=== PATIENT | male | born 1965 | race Two or more races ===

== ENCOUNTER 2019-04-08 19:10 | Inpatient (IN) | payer SELFPAY ==
[~2019-04-08] VITALS: Ht 172.7 cm; Wt 93.5 kg
[2019-04-08] MEDS ORDERED: cloNIDine HCL 0.1 MG TAB PO ONE (20:00)
[2019-04-08 20:06] LABS: Basophils # (auto) 0 uL; Basophils % (auto) 0.5 % (0.0-2.0); Eosinophils # (auto) 0 uL; Eosinophils % (auto) 0.2 % (0.0-7.0); Hemoglobin 16.2 g/dL (13.5-17.5); Lymphocytes # (auto) 1.4 uL; Lymphocytes % (auto) 29.3 % (10.0-50.0); Mean Corpuscular Hemoglobin 29.8 pg (28.0-32.0); Mean Corpuscular Hgb Conc. 34.6 g/dL (32.0-36.0); Mean Corpuscular Volume 86.2 fL (80.0-100.0); Monocytes # (auto) 0.6 uL; Monocytes % (auto) 11.6 % (0.0-12.0); Neutrophils # (auto) 2.8 uL; Neutrophils % (auto) 58.4 % (37.0-80.0); Nucleated Red Blood Cells % 0.4 %; Platelet Count (auto) 208 10^3/uL (140-450); Red Blood Cells 5.45 10^6/uL (4.5-5.90); Red Cell Distribution Width 12.4 % (11.8-14.3); White Blood Cell 4.8 10^3/uL (4.4-10.8)
[2019-04-08 20:26] LABS: Albumin 3.2 g/dL (3.4-5.0); BUN/Creatinine Ratio 13.7; Calcium 8.4 mg/dL (8.5-10.1); Potassium 3.4 mmol/L (3.5-5.1)
[2019-04-08 20:31] LABS: Bilirubin, Total 0.5 mg/dL (0.2-1.0); Total Protein 7.3 g/dL (6.4-8.2)
[2019-04-08] MEDS ORDERED: hydrALAZINE HCL 20 MG/ML VL IV ONE ×3 (21:15→22:15)
[2019-04-08] MEDS ORDERED: ASPirin-EC 325mg tab PO ONE (22:00)
[2019-04-08] MEDS ORDERED: KETOROLAC TROMETH 30 MG/ML 1ML VIAL IV ONE (22:15)
[2019-04-09] MEDS ORDERED: MORPHINE SULF INJ 2 MG/ML SYRINGE 1ML IV PRN (05:15)
[2019-04-09] MEDS ORDERED: NITROGLYCERIN 0.4 MG SL TAB SL PRN (05:15)
[2019-04-09] MEDS ORDERED: TEMAZEPAM 15 MG CAP PO PRN (05:15)
[2019-04-09] MEDS ORDERED: ONDANSETRON HCL 4 MG/2 ML VIAL IV PRN (05:15)
[2019-04-09] MEDS ORDERED: IOHEXOL 300 MG/ML 100ML BOTTLE IJ ONE (05:42)
[2019-04-09] MEDS ORDERED: ATORVASTATIN 20 MG TAB PO ONE (06:00)
[2019-04-09 06:18] LABS: Cholesterol 210 mg/dL (< 200)
[2019-04-09 06:21] LABS: HDL Cholesterol 37 mg/dL (40-59); LDL Cholesterol 134 mg/dL (< 100); Triglycerides 202 mg/dL (< 150)
[2019-04-09 08:18] VITALS: BP 144/96
[2019-04-09] MEDS: FAMOTIDINE 20 MG TAB PO SCH ×2 (09:14→22:00)
[2019-04-09] MEDS ORDERED: METF-929 PO (09:23)
[2019-04-09] MEDS ORDERED: AMLO10TA13 PO (09:23)
[2019-04-09] MEDS ORDERED: ASPirin 81 mg TAB PO SCH (10:00)
[2019-04-09] MEDS ORDERED: LISINOPRIL 10 MG TAB PO SCH (10:00)
--- NOTE | 2019-04-09 10:05 | NUR ---
FAXED MEDICAL REQUEST FORMS TO [facility] AND [facility].
[2019-04-09 10:07] VITALS: BP 144/96
--- NOTE | 2019-04-09 12:10 | NUR ---
CALLED [facility] REGARDING FAXED INFORMATION. STATED THEY HAVE NOT RECIEVED IT. FAXED AGAIN.
--- NOTE | 2019-04-09 13:11 | NUR ---
REGARDING MEDICAL RECORDS: CALLED [facility] REGARDING MEDICAL RECORDS REQUEST FORM. STILL NOT RECIEVED. OBTAINED NEW FAX NUMBER WILL TRY AGAIN.
[2019-04-09] MEDS ORDERED: LISINOPRIL 10 MG TAB PO ONE (17:00)
[2019-04-09 17:07] VITALS: BP 157/94
--- NOTE | 2019-04-09 19:00 | NUR ---
Medical records from [facility] received via fax. Placed in hard chart.
--- NOTE | 2019-04-09 19:15 | NUR ---
Opening shift note Assumed care of patient who is A&0 x4, primarily Malaysian speaking, however is able to understand and respond in simple Dutch. Patient is currently on RA with no s/s of SOB or distress. Denies pain at this time. Patient is ambulatory without the use of assistive devices. PIV in left forearm is CDI. Flushed with 10ml NS. POC discussed and patient verbalizes understanding. Bed is in low locked position with side rails up x2. Call light within reach and patient encouraged to call for assistance when needed. Will continue to monitor for changes PRN.
[2019-04-09 21:33] VITALS: BP 153/94
[2019-04-09] MEDS: ATORVASTATIN 20 MG TAB PO SCH (22:00)
[2019-04-09] MEDS: METOPROLOL TARTRATE 50 MG TAB PO SCH (22:00)
[2019-04-09] MEDS ORDERED: ATORVASTATIN 20 MG TAB PO SCH (22:00)
[2019-04-10 05:44] VITALS: BP 144/94
[2019-04-10 07:21] LABS: Basophils # (auto) 0 uL; Basophils % (auto) 0.6 % (0.0-2.0); Eosinophils # (auto) 0.1 uL; Eosinophils % (auto) 1.2 % (0.0-7.0); Hematocrit 45.5 % (41.0-53.0); Hemoglobin 15.8 g/dL (13.5-17.5); Lymphocytes # (auto) 1.6 uL; Lymphocytes % (auto) 34.1 % (10.0-50.0); Mean Corpuscular Hgb Conc. 34.8 g/dL (32.0-36.0); Mean Corpuscular Volume 86.2 fL (80.0-100.0); Monocytes # (auto) 0.6 uL; Monocytes % (auto) 12.8 % (0.0-12.0); Neutrophils # (auto) 2.4 uL; Neutrophils % (auto) 51.3 % (37.0-80.0); Nucleated Red Blood Cells % 0.1 %; Platelet Count (auto) 214 10^3/uL (140-450); Red Blood Cells 5.28 10^6/uL (4.5-5.90); Red Cell Distribution Width 12.5 % (11.8-14.3); White Blood Cell 4.7 10^3/uL (4.4-10.8)
[2019-04-10 07:40] LABS: Calcium 8.7 mg/dL (8.5-10.1); Potassium 3.4 mmol/L (3.5-5.1)
[2019-04-10 08:14] VITALS: BP 151/101
[2019-04-10] MEDS: FAMOTIDINE 20 MG TAB PO SCH ×2 (09:15→21:52)
[2019-04-10] MEDS: ASPirin 81 mg TAB PO SCH (09:16)
[2019-04-10] MEDS: METOPROLOL TARTRATE 50 MG TAB PO SCH ×2 (09:17→21:52)
[2019-04-10] MEDS ORDERED: LISINOPRIL 10 MG TAB PO SCH (10:00)
--- NOTE | 2019-04-10 10:30 | NUR ---
DR. MCGRATH IN TO SEE PT. PT IN AGREEMENT WITH [facility].
[2019-04-10] MEDS ORDERED: POTASSIUM CHL 20 Meq TABLET PO ONE (11:30)
[2019-04-10 13:00] VITALS: BP 164/100
[2019-04-10 16:17] VITALS: BP 152/99
[2019-04-10] MEDS ORDERED: LISINOPRIL 20 MG TAB PO ONE (18:15)
[2019-04-10 20:00] VITALS: BP 177/107
--- NOTE | 2019-04-10 20:10 | NUR ---
Opening Shift Note Assumed care of patient, awake and alert. No S/S of distress/SOB or pain. Instructed on POC and to call for assist PRN, will continue to monitor for changes Q1hr and PRN. Tajik speaking patient.
[2019-04-10 21:52] VITALS: BP 177/107
[2019-04-10] MEDS: ATORVASTATIN 20 MG TAB PO SCH (21:52)
[2019-04-10] MEDS ORDERED: ATORVASTATIN 20 MG TAB PO SCH (22:00)
--- NOTE | 2019-04-10 23:25 | NUR ---
Patient's Blood Pressure. 2200 medication given Metroprolol (50MG. BP 177/107 P-74 Reassessed BP 174/111 P-76 Will page hospitalist to inform patient condition.
--- NOTE | 2019-04-10 23:35 | NUR ---
called about. Ordered Hydralazine 50mg PO TID PRN. Repeated orders to verify. will follow as order
[2019-04-11] MEDS: hydrALAZINE HCL 25 MG TAB PO PRN ×2 (00:02→11:41)
[2019-04-11 04:49] VITALS: BP 171/97
--- NOTE | 2019-04-11 06:15 | NUR ---
Patient 0500 BP 171/97. Will page hospitalist on patient's condition.
--- NOTE | 2019-04-11 06:25 | NUR ---
Dr. Rodrigues called back and order Amlodipine 10mg Po daily. Dr. Rodrigues order to give stat. Repeated orders to verify.
--- NOTE | 2019-04-11 07:00 | NUR ---
Will endorsed to dayshift nurse Amlodipine order. Due to waiting for pharmacy to process.
[2019-04-11] MEDS: amLODIPine BESYLATE 5 MG TAB PO SCH (08:18)
[2019-04-11] MEDS: FAMOTIDINE 20 MG TAB PO SCH ×2 (08:18→22:20)
[2019-04-11] MEDS: ACETAMINOPHEN 325 MG TAB PO PRN (08:19)
[2019-04-11] MEDS: ASPirin 81 mg TAB PO SCH (08:19)
[2019-04-11] MEDS: LISINOPRIL 20 MG TAB PO SCH (08:19)
[2019-04-11] MEDS: METOPROLOL TARTRATE 50 MG TAB PO SCH ×2 (08:19→22:20)
--- NOTE | 2019-04-11 08:25 | NUR ---
PT WITH HIGH B/P MEDICATED PER EMAR, TOLERATED WELL. EFFORTLESS BREATHING ON ROOM AIR. BED IN LOWEST POSITION, CALL LIGHT WITHIN REACH. WILL CONTINUE TO MONITOR.
[2019-04-11 09:20] VITALS: BP 174/114
--- NOTE | 2019-04-11 11:30 | NUR ---
DR. MCGRATH AND DR. CLEMENT MADE AWARE OF PT'S B/P ORDERS RECEIVED FOR CLONIDINE AND RENAL MRI FOR R/O RENAL ARTERY STENOSIS.
[2019-04-11] MEDS: cloNIDine HCL 0.1 MG TAB PO PRN (11:41)
[2019-04-11 13:25] VITALS: BP 101/65
[2019-04-11 14:21] VITALS: BP 173/110
[2019-04-11 16:47] VITALS: BP 120/75
--- NOTE | 2019-04-11 19:55 | NUR ---
Opening Shift Note Assumed care of patient, awake and alert. No S/S of distress/SOB or pain. Instructed on POC and to call for assist PRN, will continue to monitor for changes Q1hr and PRN. Patient aware of stress test tomorrow.
[2019-04-11 22:00] VITALS: BP 160/92
[2019-04-11] MEDS: ATORVASTATIN 20 MG TAB PO SCH (22:20)
[2019-04-12] VITALS (8 sets, daily range): BP systolic 140–166; BP diastolic 87–107
[2019-04-12] MEDS: cloNIDine HCL 0.1 MG TAB PO PRN (05:16)
--- NOTE | 2019-04-12 05:42 | NUR ---
Critical lab. Hgb 5.8. Patient made aware of low hemoglobin. Patient continues to refused blood transfusion. "I want to keep going with the iron". made aware. Addendum: 04/12/19 at 0609 by CHAVEZ DURAN RN RN Wrong patient.
--- NOTE | 2019-04-12 06:09 | NUR ---
IV insertion IV access obtained, via clean sterile technique by inserting 22 gauge catheter at 22 after 1 attempt(s). IV secured properly. No trauma to site. Patient tolerated well.
--- NOTE | 2019-04-12 07:20 | NUR ---
Opening Shift Note Assumed care of patient, awake and alert. No S/S of distress/SOB or pain. Instructed on POC and to call for assist PRN, will continue to monitor for changes Q1hr and PRN.
[2019-04-12] MEDS: METOPROLOL TARTRATE 50 MG TAB PO SCH ×2 (08:40→21:34)
[2019-04-12] MEDS ORDERED: ADENOSINE 77 MG in GIVE UN-DILUTED 0 ML IV STA (08:42)
[2019-04-12] MEDS: FAMOTIDINE 20 MG TAB PO SCH ×2 (09:11→21:33)
[2019-04-12] MEDS: amLODIPine BESYLATE 5 MG TAB PO SCH (09:11)
[2019-04-12] MEDS: ASPirin 81 mg TAB PO SCH (09:12)
[2019-04-12] MEDS: LISINOPRIL 20 MG TAB PO SCH (09:12)
--- NOTE | 2019-04-12 09:13 | NUR ---
Stress Test Patient off floor for stress test
--- NOTE | 2019-04-12 19:10 | NUR ---
Opening Shift Note Received report from immanuel Boyre RN. Assumed care of patient, awake and alert. No S/S of distress/SOB or pain. Instructed on POC and to call for assist PRN, will continue to monitor for changes Q1hr and PRN. Bed placed in lowest position and call light within reach.
[2019-04-12] MEDS: ATORVASTATIN 20 MG TAB PO SCH (21:34)
[2019-04-13] VITALS (7 sets, daily range): BP systolic 153–158; BP diastolic 91–98
--- NOTE | 2019-04-13 06:00 | NUR ---
GIVEN HYDRALAZINE FOR BLOOD PRESSURE 155/91. PATIENT IS ALERT AND ORIENTED, NO DISTRESS NOTED AND PATIENT DENIES PAIN.
[2019-04-13] MEDS: hydrALAZINE HCL 25 MG TAB PO PRN ×3 (06:27→17:44)
[2019-04-13] MEDS: METOPROLOL TARTRATE 50 MG TAB PO SCH ×2 (09:25→21:58)
[2019-04-13] MEDS: FAMOTIDINE 20 MG TAB PO SCH ×2 (09:25→21:57)
[2019-04-13] MEDS: amLODIPine BESYLATE 5 MG TAB PO SCH (09:26)
[2019-04-13] MEDS: ASPirin 81 mg TAB PO SCH (09:26)
[2019-04-13] MEDS: LISINOPRIL 20 MG TAB PO SCH (09:26)
--- NOTE | 2019-04-13 17:06 | NUR ---
assessment Patient is a 53 year old male who is Icelandic speaking. Krystin RN is translating for us. Patients cognitive abilities are intact. Prior to admission patient lived home with family and functioned independently. Patient informed me he is able to care for his own ADLs. Per patient he will return home to his prior living arrangements post discharge and family will transport him home. Patient has no insurance. Patient has been assessed by Navneet Rodríguez of [facility]. Patient may qualify for [facility] if she brings back all her paperwork. I have provided patient with resources for [facility], Dr. Davis, and [facility] urgent care for follow up visits. I have provided patient with a prescription card from community assistance program. Patient feels safe returning home on discharge. Patient has no post discharge needs at this time. I informed patient he has a right to speak to a social scientist regarding all care. I informed patient he has a right to participate in any and all discharge planning. Patient does not have a POA and advanced directive. I have offered patient information on POA and advanced directives. I informed the patient the advantages and benefits of having an Advanced Directive. Patient verbalized understanding and agreed to discharge plan. Addendum: 04/13/19 at 1708 by Joycelyn DE SANTIAGO Amended: Links added.
[2019-04-13] MEDS: ATORVASTATIN 20 MG TAB PO SCH (21:57)
--- NOTE | 2019-04-14 | NUR ---
REMINDED PATIENT NOT TO EAT OR DRINK AFTER MIDNIGHT. PATIENT VERBALIZED UNDERSTANDING.
--- NOTE | 2019-04-14 05:56 | NUR ---
Closing note Pt resting with eyes closed. Respirations even and unlabored. B/P 159/90 will give Hydralazine as ordered. No signs/symptoms of distress noted, saturating @ 97% on room air. Bed in lowest locked position with side rails up. Safety precautions in place.
[2019-04-14 05:58] VITALS: BP 159/90
[2019-04-14] MEDS: hydrALAZINE HCL 25 MG TAB PO PRN (06:38)
[2019-04-14 07:45] VITALS: BP 159/90
--- NOTE | 2019-04-14 08:30 | NUR ---
Opening Shift Note Received report on the patient. Awake lying in bed. Patient shows no signs of distress at this time. Tried to discuss the plan of care with the patient, but there is a language barrier. Bed in lowest position, side rails up x2, and the call light is within reach. Will continue to monitor.
[2019-04-14 08:38] VITALS: BP 145/96
[2019-04-14] MEDS: FAMOTIDINE 20 MG TAB PO SCH ×2 (09:38→23:14)
[2019-04-14] MEDS: LISINOPRIL 20 MG TAB PO SCH (09:38)
[2019-04-14] MEDS: amLODIPine BESYLATE 5 MG TAB PO SCH (09:38)
[2019-04-14] MEDS: METOPROLOL TARTRATE 50 MG TAB PO SCH ×2 (09:38→23:14)
[2019-04-14] MEDS: ASPirin 81 mg TAB PO SCH (09:38)
--- NOTE | 2019-04-14 12:21 | NUR ---
NUTRITION ASSESSMENT NOTES Please refer to link notes of nutrition screen form filed under the intervention section of the plan of care for further details. Est. Needs: 1850 kcal to 2350 kcal (25-30 kcal/kgBW), 74 gms to 92 gms pro (0.8-1.0 gms/kgBW). Will continue to monitor pertinent labs and reassess nutrient need prn Thank you. Addendum: 04/14/19 at [address] Amended: Links added.
[2019-04-14 12:30] VITALS: BP 143/92
--- NOTE | 2019-04-14 12:30 | NUR ---
MD Dr. Blevins at bedside
[2019-04-14] MEDS ORDERED: DEXTROSE (50%) 50ML SYRG IV PRN (12:45)
--- NOTE | 2019-04-14 13:24 | NUR ---
Panel Fitter color laboratory technician called and wanted to move the left heart cath up for today. I informed the color laboratory technician that the patient has already eaten and I was advised that it would be fine. But the patient and his family refused because the patient "has already eaten and we don't want to take the risk". I called color laboratory technician back and let Blanca know the situation. She will let me know when the patient will go for the procedure.
[2019-04-14 14:21] LABS: INR 1.04 (0.9-1.15)
[2019-04-14 16:29] LABS: Urine Bacteria NONE SEEN /hpf (None Seen); Urine Blood Negative /uL (Negative); Urine Specific Gravity 1.017 (1.001-1.035); Urine WBC <1 /hpf (0 - 3)
[2019-04-14 16:34] VITALS: BP 132/88
[2019-04-14] MEDS: ACCU-CHEK COMFORT CURVE STRIP VI SCH ×2 (17:24→23:17)
[2019-04-14] MEDS: InsuLIN REG 1unit/0.01ml Soln (100units/ml) SC SCH ×2 (17:24→23:49)
--- NOTE | 2019-04-14 19:20 | NUR ---
Opening Shift Note Assumed care of patient. Patient is awake and alert. No S/S of distress/SOB or pain. Instructed on POC and to call for assist PRN, will continue to monitor for changes Q1hr and PRN. Bed locked in lowest position and bed rails up x2. Call light within reach.
[2019-04-14 22:23] VITALS: BP 153/84
[2019-04-14] MEDS: ATORVASTATIN 20 MG TAB PO SCH (23:14)
[2019-04-15] MEDS ORDERED: SODIUM CHLORIDE 0.9% 1,000 ML IV SCH (00:01)
[2019-04-15 02:56] LABS: Basophils # (auto) 0 uL; Basophils % (auto) 0.6 % (0.0-2.0); Eosinophils # (auto) 0.1 uL; Eosinophils % (auto) 1.9 % (0.0-7.0); Hematocrit 47.8 % (41.0-53.0); Hemoglobin 16.1 g/dL (13.5-17.5); Lymphocytes # (auto) 2.5 uL; Lymphocytes % (auto) 37.3 % (10.0-50.0); Mean Corpuscular Hemoglobin 29.2 pg (28.0-32.0); Mean Corpuscular Hgb Conc. 33.7 g/dL (32.0-36.0); Mean Corpuscular Volume 86.7 fL (80.0-100.0); Monocytes # (auto) 0.6 uL; Monocytes % (auto) 9.4 % (0.0-12.0); Neutrophils # (auto) 3.4 uL; Neutrophils % (auto) 50.8 % (37.0-80.0); Nucleated Red Blood Cells % 0.1 %; Platelet Count (auto) 260 10^3/uL (140-450); Red Blood Cells 5.51 10^6/uL (4.5-5.90); Red Cell Distribution Width 12.6 % (11.8-14.3); White Blood Cell 6.6 10^3/uL (4.4-10.8)
[2019-04-15 03:13] LABS: INR 1.03 (0.9-1.15); Partial Thromboplastin Time 26.6 sec (23.64-32.05)
[2019-04-15 03:15] LABS: Calcium 8.5 mg/dL (8.5-10.1); Potassium 3.8 mmol/L (3.5-5.1)
[2019-04-15 05:31] VITALS: BP 142/89
[2019-04-15] MEDS: ACCU-CHEK COMFORT CURVE STRIP VI SCH ×4 (06:03→22:10)
[2019-04-15] MEDS: InsuLIN REG 1unit/0.01ml Soln (100units/ml) SC SCH ×4 (06:03→22:10)
--- NOTE | 2019-04-15 06:03 | NUR ---
Insulin coverage held for a blood sugar reading of 159 d/t NPO status for procedure today
[2019-04-15 08:00] VITALS: BP 158/98
[2019-04-15] MEDS: ASPirin 81 mg TAB PO SCH (09:05)
[2019-04-15] MEDS: METOPROLOL TARTRATE 50 MG TAB PO SCH ×2 (09:05→20:31)
[2019-04-15] MEDS: amLODIPine BESYLATE 5 MG TAB PO SCH (09:06)
[2019-04-15] MEDS: LISINOPRIL 20 MG TAB PO SCH (09:06)
[2019-04-15] MEDS: FAMOTIDINE 20 MG TAB PO SCH ×2 (09:06→22:10)
--- NOTE | 2019-04-15 09:30 | NUR ---
laborer mine Called laborer hoisting; patient not on schedule for today. States patient refused procedure and it was canceled. Patient NPO and still wanting procedure. Spoke with [employer] Espinoza of patient's wishes; will follow up.
[2019-04-15 12:00] VITALS: BP 138/88
--- NOTE | 2019-04-15 12:20 | NUR ---
Patient transported to recyclable materials distributor for procedure.
[2019-04-15] MEDS ORDERED: HEPARIN SODIUM (PORCINE) 5000 UNITS/ML 1ML VIAL ONE (12:43)
[2019-04-15] MEDS ORDERED: ANGIOMAX 250 MG VIAL IV ONE (12:43)
[2019-04-15] MEDS ORDERED: LIDOCAINE 2%HCL (LOCAL ANESTH.) INJ 20ML MDV ONE (12:44)
[2019-04-15] MEDS ORDERED: VERAPAMIL 2.5MG/ML INJ 2ML VIAL IV ONE (12:44)
[2019-04-15] MEDS ORDERED: fentaNYL CITRATE 100 MCG/2 ML VL ONE (12:44)
[2019-04-15] MEDS ORDERED: NITROGLYCERIN 5MG/ML 10ML VIAL IV ONE (12:44)
[2019-04-15] MEDS ORDERED: SODIUM CHL 0.9% 100 ML ONE (12:45)
[2019-04-15] MEDS ORDERED: MIDAZOLAM HCL 1MG/1ML-2 ML VIAL ONE (12:52)
[2019-04-15] MEDS ORDERED: IOHEXOL 350 MG/ML 100ML IJ ONE ×2 (13:11→13:26)
[2019-04-15] MEDS ORDERED: TICAGRELOR 90 MG TAB ONE (13:29)
[2019-04-15] MEDS ORDERED: CLOPIDOGREL 300 MG TAB ONE (13:54)
[2019-04-15 17:00] VITALS: BP 158/111
--- NOTE | 2019-04-15 17:00 | NUR ---
Vasc Band All air removed from vasc band. Dressing placed with gauze and Tegaderm.
[2019-04-15] MEDS: hydrALAZINE HCL 25 MG TAB PO PRN (17:31)
[2019-04-15] MEDS: ACETAMINOPHEN 325 MG TAB PO PRN (17:32)
--- NOTE | 2019-04-15 19:20 | NUR ---
Opening Shift Note Assumed care of patient. Patient is awake and alert with family at bedside. No S/S of distress/SOB. Instructed on POC and to call for assist PRN, will continue to monitor for changes Q1hr and PRN. Bed locked in lowest position and bed rails up x2. Call light within reach.
--- NOTE | 2019-04-15 20:20 | NUR ---
Patient reports severe headache and states that he has had a headache every since he came back from his procedure. Insulin and Tylenol was recently given by day shift RN. Blood sugar was checked with a reading of 156. Blood pressure was then assessed with a reading of 160/96, HR, 93. Scheduled blood pressure medications given early. Oxygen by NC at 3lpm applied. Will reassess within an hour and continue to monitor.
[2019-04-15] MEDS: CARVEDILOL 3.125 MG TAB PO SCH (20:32)
[2019-04-15 21:57] VITALS: BP 136/95
[2019-04-15] MEDS: ATORVASTATIN 20 MG TAB PO SCH (22:10)
[2019-04-16 05:30] VITALS: BP 143/93
[2019-04-16] MEDS: ACCU-CHEK COMFORT CURVE STRIP VI SCH ×2 (06:44→11:48)
[2019-04-16] MEDS: InsuLIN REG 1unit/0.01ml Soln (100units/ml) SC SCH ×2 (06:45→11:49)
--- NOTE | 2019-04-16 07:40 | NUR ---
Opening Note Received report from training and development assistant RN. Patient resting in bed, No signs or symptoms of distress noted at this time. Bed in low and locked position, call light within reach. Will continue to monitor Q1 hour and PRN.
[2019-04-16 08:00] VITALS: BP 147/93
[2019-04-16 09:00] VITALS: BP_SYST 134; BP_SYST 147; BP_DIAS 88; BP_DIAS 93
--- NOTE | 2019-04-16 09:22 | NUR ---
Opening Shift Note Assumed care of pt. pt was alert and oriented, Iraqi speaking only. pt complained of mild pain on his right wrist, at the incision site, no blood noted on gauze. Took oxygen off pt, pt tolerated well. Call light within reach. pt did not seem in distress upon leaving.
[2019-04-16] MEDS ORDERED: CLOPIDOGREL BISULFATE 75 MG TAB PO SCH (10:00)
[2019-04-16] MEDS: amLODIPine BESYLATE 5 MG TAB PO SCH (10:16)
[2019-04-16] MEDS: FAMOTIDINE 20 MG TAB PO SCH (10:17)
[2019-04-16] MEDS: LISINOPRIL 20 MG TAB PO SCH (10:17)
[2019-04-16] MEDS: METOPROLOL TARTRATE 50 MG TAB PO SCH (10:17)
[2019-04-16] MEDS: CARVEDILOL 3.125 MG TAB PO SCH (10:17)
[2019-04-16] MEDS: ASPirin 81 mg TAB PO SCH (10:18)
--- NOTE | 2019-04-16 12:30 | NUR ---
Dr. Glenn Blevins at bedside Discussing plan of care with patient, family and this RN. Patient to be discharged later today. Will implement new orders. Will continue to monitor Q1 hour and PRN.
[2019-04-16 13:00] VITALS: BP 143/57
--- NOTE | 2019-04-16 14:29 | NUR ---
Discharge Discharge instructions given as ordered. Patient has no insurance, provided with information. All questions and concerns addressed. Patient and family verbalized understanding. Medication reconciliation form completed and copy given to patient. IV catheter removed, catheter intact, pressure dressing applied. compliance monitor removed and sent back to ICU. Patient refused wheelchair, patient ambulated to private vehicle. Patient accompanied by family, with all personal belongings. No signs or symptoms of distress noted at this time.
== END 2019-04-16 14:37 | disposition home or self-care (01) | DRG 247 ==
LOC: ER 19:15 → TELE 19:16 → TELE-WESTW 04-09 07:40
PROVIDERS: ADMIT Nurse Practitioner; ATTEND Family Medicine
PROC: 027035Z Dilation of Coronary Artery, One Artery with Two Drug-eluting Intraluminal Devices, Percutaneous Approach (ICD-10-PCS; principal; 2019-04-15)
PROC: 4A023N7 Measurement of Cardiac Sampling and Pressure, Left Heart, Percutaneous Approach (ICD-10-PCS; 2019-04-15)
PROC: B2111ZZ Fluoroscopy of Multiple Coronary Arteries using Low Osmolar Contrast (ICD-10-PCS; 2019-04-15)
PROC: B2151ZZ Fluoroscopy of Left Heart using Low Osmolar Contrast (ICD-10-PCS; 2019-04-15)
DX: I21.A1 Myocardial infarction type 2 (principal); I16.1 Hypertensive emergency; E11.65 Type 2 diabetes mellitus with hyperglycemia; E78.00 Pure hypercholesterolemia, unspecified; E78.5 Hyperlipidemia, unspecified; D71 Functional disorders of polymorphonuclear neutrophils; I10 Essential (primary) hypertension; D17.0 Benign lipomatous neoplasm of skin and subcutaneous tissue of head, face and neck; I25.10 Atherosclerotic heart disease of native coronary artery without angina pectoris; Z79.82 Long term (current) use of aspirin; Z79.899 Other long term (current) drug therapy; Z91.19 Patient's noncompliance with other medical treatment and regimen; Z79.84 Long term (current) use of oral hypoglycemic drugs
CPT/HCPCS: 36415; 70490; 71045; 72129; 78452; 80048; 80053; 80061; 81001; 82565; 82962; 83036; 83880; 84484; 85025; 85610; 85730; 86850; 86900; 86901; 93005; 93017; 93306; 93976; 96374; 96375; 99152; 99153; C1874; C1887; G0378; J0153; J1815; J1885; J2250; J2405; J3490